=== PATIENT | male | born 1985 | race Caucasian/White ===

== ENCOUNTER 2017-02-07 16:20 | Emergency (ER) | payer SELFPAY ==
[~2017-02-07] VITALS: Ht 190.5 cm; Wt 86.2 kg
[~2017-02-07 16:20] MED LIST: HYDR-31
--- NOTE | 2017-02-07 16:34 | ED EENT ---
History of Present Illness General Chief Complaint: Eye Problems Stated Complaint: EYE PROBLEMS History of Present Illness Time seen by provider: 16:25 Initial Comments Evaluation for chemical exposure to the right eye. 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 It splattered into his right eye. He rinsed his eye in the sink , immediately after this happened. He was not wearing contacts glasses or safety goggles. He denies any previous injuries to his right eye. He reports minimal pain in his right eye and immediately after it happened he had photophobia but that has since resolved Location Injury Occurred: 1530 Timing/Duration: abrupt Severity: mild Location: eye (R) Prearrival Treatment: flushing eyes Associated Symptoms: denies symptoms Allergies and Home Medications Allergies Coded Allergies: No Known Drug Allergies (Verified Allergy, Unknown, 10/06/08) Home Medications Poncho/Polymyx B Sulf/Dexameth 5 Ml Drops.susp #1 2 DROPS OD Q6H 2 drops right eye 7 days. Prescribed by: SHERIE JUAN on 02/07/17 5334 Review of Systems Constitutional: no symptoms reported see HPI Eyes: See HPIDenies Blindness, Blurred VisionDenies Drainage, Denies Decreased Acuity, Foreign Body Sensation InflammationDenies Photophobia, Denies Previous Injury, Denies Tunnel Vision, Denies Vision Changes, Denies Contact Lenses, Denies Glasses Ears: No Symptoms Reported See HPI Nose: no symptoms reported see HPI Mouth: no symptoms reported see HPI Throat: no symptoms reported see HPI Respiratory: no symptoms reported see HPI Cardiovascular: no symptoms reported see HPI Gastrointestinal: no symptoms reported see HPI Musculoskeletal: no symptoms reported see HPI Skin: no symptoms reported see HPI Neurological: No Symptoms Reported See HPI Hematologic/Lymphatic: No Symptoms Reported See HPI Immunological/Allergic: no symptoms reported see HPI All Other Systems Reviewed Negative Unless Noted: Yes Past Rdmkmps-Tozmyu-Jcceok Hx Patient Social History Recent Foreign Travel: No Contact w/Someone Who Travel: No Musculoskeletal Hx Musculoskeletal Disorders: Yes (KATY-sCHLATTER'S DISEASE) Endocrine Hx Endocrine Disorders: No HEENT HX ENT Disorders: No Reviewed Nursing Assessment Reviewed/Agree w Nursing PMH: Yes Visual Acuity : Eye Location: Right Vision Acuity Degree: 20/30 (Left 20/20 and OU 20/20) Physical Exam Vital Signs Vital Sign - Last 12Hours 02/07/17 16:20 Temp 99.2 Pulse 79 Resp 18 B/P 145/92 Pulse Ox 96 O2 Delivery Room Air General Appearance: WD/WN no apparent distress Eyes: right eye conjunctival inflammation, bilateral eye EOMI, bilateral eye PERRL, bilateral eye normal inspection Ears: bilateral ear TM normal, bilateral ear auricle normal, bilateral ear canal normal Nose: normal inspectionNo active bleeding, No discharge, No sinus tenderness Neck: non-tender full range of motion supple normal inspection Cardiovascular: normal peripheral pulses regular rate, rhythm no murmur Respiratory: chest non-tender lungs clear normal breath sounds Neurologic/Psychiatric: no motor/sensory deficits alert normal mood/affect oriented x 3 Skin: normal color warm/dry Progress/Results/Core Measures Results/Orders My Orders Orders-SHERIE JUAN Iv 1000 Ml (Sodium Chloride 0.9%) (02/07/17 16:41) Medications Given in ED Current Medications Medications Dose Ordered Sig/Betty Route Start Time Stop Time Status Last Admin Dose Admin Sodium Chloride 1,000 ml @ 0 mls/hr Q0M ONCE IV 02/07/17 16:41 02/07/17 16:43 DC 02/07/17 16:15 1,000 MLS/HR Vital Signs/I&O Vital Sign - Last 12Hours 02/07/17 02/07/17 16:20 17:08 Temp 99.2 Pulse 79 85 Resp 18 16 B/P 145/92 Pulse Ox 96 99 O2 Delivery Room Air Progress Note : Time: 16:25 Progress Note Initial evaluation completed, irrigation with sterile normal saline started right eye at 1630. Per poison control they recommended 15 minute by rinse. 1645 patient completed irrigation of the right eye, reports less irritation and no pain in the right side. Ophthalmoscopic exam normal. Discharge plans made patient agreed with this Departure Impression Impression: Primary Impression: Chemical insult, eye Qualified Code: T26.41XA - Burn of right eye and adnexa, part unspecified, initial encounter Disposition: HOME, SELF-CARE Condition: Improved Departure-Patient Inst. Decision time for Depature: 16:45 Referrals: NO,LOCAL PHYSICIAN (PCP) Primary Care Physician Patient Instructions: Chemical Eye Injury (DC) Add. Discharge Instructions: All discharge instructions reviewed with patient and/or family. Voiced understanding. Return to emergency room for any visual disturbance, eye pain, or changes in symptoms. Use eyedrops as prescribed. Scripts Poncho/Polymyx B Sulf/Dexameth (Dqnfiy-Uyjuf-Stnnvnpw Eye Drop)5 Ml Drops.susp2 Drops OD Q6H #1 DROPS Ref 0 2 drops right eye 7 days. Prov:SHERIE JUAN 02/07/17 SHERIE JUAN Feb 07, 2017 16:34
[2017-02-07] MEDS ORDERED: NS IV 1000 ML 1,000 ML IV ONE (16:41)
[2017-02-07] MEDS ORDERED: NPD5OP OD (16:59)
[2017-02-07 17:08] VITALS: BP 132/86
== END 2017-02-07 17:08 | disposition home or self-care (01) ==
LOC: EDUNIT# 16:20 → ER 16:22
DX: T26.91XA Corrosion of right eye and adnexa, part unspecified, initial encounter (principal); T57.8X1A Toxic effect of other specified inorganic substances, accidental (unintentional), initial encounter; Y92.59 Other trade areas as the place of occurrence of the external cause; Y99.0 Civilian activity done for income or pay
CPT/HCPCS: 99283

== ENCOUNTER 2018-10-07 19:20 | Emergency (ER) | payer OTHER ==
[~2018-10-07] VITALS: Ht 190.5 cm; Wt 86.2 kg
[~2018-10-07 19:20] MED LIST changes: +NPD5OP OD
[2018-10-07] MEDS ORDERED: TETANUS,DIPTH,PERTUSS P/F (BOOSTRIX) 0.5 ML VIAL IM ONE (19:45)
[2018-10-07] MEDS ORDERED: LIDOCAINE 1% INJ 20 ML 20 ML VIAL INJ ONE (19:45)
--- NOTE | 2018-10-07 20:24 | ED Lower Extremity ---
General Chief Complaint: Laceration Stated Complaint: R HAND LACERATION AT WORK Nursing Triage Note: right hand laceration Nursing Sepsis Screen: No Definite Risk Source: patient Exam Limitations: no limitations History of Present Illness Date Seen by Provider: Oct 07, 2018 Time Seen by Provider: 19:35 Initial Comments This 33-year-old gentleman presents to the emergency room with a laceration on his right hand. He was using a metal анна to show feed through a shoot at work when he struck his hand against a bowl head causing a laceration between the base of the right fourth and fifth fingers on the dorsal aspect of his hand. Bleeding is controlled. He believes he has 45 years out from his last tetanus immunization. He retains flexion and extension of the fingers as well as the lateral and medial range of motion in the fingers. Allergies and Home Medications Allergies Coded Allergies: No Known Drug Allergies (Verified Allergy, Unknown, 10/06/08) Home Medications No Active Prescriptions or Reported Meds Patient Home Medication List Home Medication List Reviewed: Yes Review of Systems Constitutional: no symptoms reported EENTM: no symptoms reported Respiratory: no symptoms reported Cardiovascular: no symptoms reported Gastrointestinal: no symptoms reported Genitourinary: no symptoms reported Musculoskeletal: no symptoms reported Skin: see HPI Psychiatric/Neurological: No Symptoms Reported Past Ovcqdyw-Enhnuk-Lxogii Hx Patient Social History Alcohol Use: Denies Use Recreational Drug Use: No Smoking Status: Current Everyday Smoker Type Used: Cigarettes 2nd Hand Smoke Exposure: Yes Recent Foreign Travel: No Contact w/Someone Who Travel: No Recent Infectious Disease Expo: No Recent Hopitalizations: No Immunizations Up To Date Tetanus Booster (TDap): More than 5yrs PED Vaccines UTD: Yes Seasonal Allergies Seasonal Allergies: No Past Medical History Surgeries: Yes (knee) Orthopedic Respiratory: No Cardiac: No Neurological: No Reproductive Disorders: No Genitourinary: No Gastrointestinal: No Musculoskeletal: Yes (KATY-sCHLATTER'S DISEASE) Endocrine: No Cancer: No Psychosocial: No Integumentary: No Blood Disorders: No Physical Exam Vital Signs Vital Signs - First Documented 10/07/18 19:37 Temp 99.1 Pulse 90 Resp 18 B/P (MAP) 131/90 (104) Pulse Ox 99 O2 Delivery Room Air Capillary Refill : Less Than 3 Seconds Height, Weight, BMI Height: 6'3.00" Weight: 190lbs. oz. 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 Flexion and extension of the fingers is normal. Strength and ceo & co founder is normal. Lateral and medial motion of the fingers is also intact. There is a 3 cm laceration in an L shape overlying the area between the fourth and fifth MCP joint and extending between the fingers on the distal hand. Laceration is on the dorsal aspect. There is some disruption of fascia but muscle tissue appears to be intact. No foreign bodies were observed. Procedures/Interventions Other Wound Location Distal dorsal right hand between the fourth and fifth MCP joint. Wound Length (cm): 3 Wound's Depth, Shape: linear, irregular, sub Q Wound Explored: clean Irrigated w/ Saline (ccs): 250 Betadine Prep?: Yes Anesthesia: 1% Lidocaine Volume Anesthetic (ccs): 4 Suture: Prolene Suture Size: 4-0 Number of Sutures: 7 Progress/Results/Core Measures Results/Orders My Orders Orders - STACIE HONEYCUTT MD Dipht,Pertbelgica(Acell),Tet Adult (Boostrix (10/07/18 19:45) Lidocaine 1% Inj 20 Ml (Xylocaine 1% Inj (10/07/18 19:45) Medications Given in ED Current Medications Medications Dose Ordered Sig/Betty Route Start Time Stop Time Status Last Admin Dose Admin Diphtheria/ Tetanus/Acell Pertussis 0.5 ml ONCE ONCE IM 10/07/18 19:45 10/07/18 19:46 DC 10/07/18 19:51 0.5 ML Lidocaine HCl 20 ml ONCE ONCE INJ 10/07/18 19:45 10/07/18 19:46 DC 10/07/18 19:50 20 ML Vital Signs/I&O 10/07/18 19:37 Temp 99.1 Pulse 90 Resp 18 B/P (MAP) 131/90 (104) Pulse Ox 99 O2 Delivery Room Air Blood Pressure Mean: 104 Progress Progress Note : Progress Note Patient received a tetanus booster. Wound was anesthetized with lidocaine after cleaning the surrounding skin with alcohol. Hand was scrubbed with chlorhexidine and sterile saline. Wound was irrigated with 250 mL normal saline with a syringe under pressure. Skin was prepped with Betadine and laceration was repaired with 4-0 Prolene in an interrupted fashion. Patient tolerated the procedure well. Repaired wound was dressed by nursing staff. Occupational health paperwork was completed. Departure Impression Primary Impression: Laceration of right hand Qualified Codes: S61.411A - Laceration without foreign body of right hand, initial encounter Disposition: HOME, SELF-CARE Condition: Improved Departure-Patient Inst. Referrals: NO,LOCAL PHYSICIAN (PCP/Family) Primary Care Physician Patient Instructions: Laceration Repair With Stitches (DC) Add. Discharge Instructions: Keep your hand clean and dry except for normal handwashing and showering. Do not submerge. Do not scrub directly over the sutures. Monitor the wound for signs of infection such as increasing redness, increasing swelling, increasing pain, puslike drainage, or fever. Return promptly to care if you notice these symptoms. Cover your hand when working or active to prevent snagging the sutures. Also keep covered anytime your in a dirty or jhonathan environment. You should have light duty with the right hand only until cleared by occupational health. I recommend you have the sutures removed in about 10 days. Return to care if you have any other problems or concerns. All discharge instructions reviewed with patient and/or family. Voiced understanding. Scripts No Active Prescriptions or Reported Meds STACIE HONEYCUTT MD Oct 07, 2018 20:24
[2018-10-07 20:30] VITALS: BP 131/90
== END 2018-10-07 20:31 | disposition home or self-care (01) ==
LOC: EDUNIT# 19:20 → ER 19:22
DX: S61.411A Laceration without foreign body of right hand, initial encounter (principal); F17.210 Nicotine dependence, cigarettes, uncomplicated; Z77.22 Contact with and (suspected) exposure to environmental tobacco smoke (acute) (chronic); Z23 Encounter for immunization; W22.09XA Striking against other stationary object, initial encounter; Y92.59 Other trade areas as the place of occurrence of the external cause; Y99.0 Civilian activity done for income or pay
CPT/HCPCS: 12001; 90715